=== PATIENT | female | born 1980 | race Caucasian/White ===

== ENCOUNTER 2018-10-06 19:19 | Emergency (ER) | payer MEDICAID ==
[~2018-10-06] VITALS: Ht 175.3 cm; Wt 95.3 kg
[2018-10-06] MEDS ORDERED: CIPROFLOXIN HC2.5 M1 OPHTHALMIC (20:13)
[2018-10-06 20:39] VITALS: BP 118/68
== END 2018-10-06 20:40 | disposition home or self-care (01) ==
LOC: M.ERS 19:19
DX: H10.9 Unspecified conjunctivitis (principal); J44.9 Chronic obstructive pulmonary disease, unspecified; Z90.49 Acquired absence of other specified parts of digestive tract; Z90.710 Acquired absence of both cervix and uterus; Z96.669 Presence of unspecified artificial ankle joint; Z88.2 Allergy status to sulfonamides; Z88.1 Allergy status to other antibiotic agents; Z91.041 Radiographic dye allergy status; Z91.040 Latex allergy status; Z88.8 Allergy status to other drugs, medicaments and biological substances

== ENCOUNTER 2018-11-03 17:33 | Emergency (ER) | payer MEDICAID ==
[~2018-11-03] VITALS: Ht 170.2 cm; Wt 100.7 kg
[~2018-11-03 17:33] MED LIST: CIPROFLOXIN HC2.5 M1 OPHTHALMIC
[2018-11-03 18:12] LABS: INFLUENZA A ANTIGEN None Detected (None Detect); INFLUENZA B ANTIGEN None Detected (None Detect)
[2018-11-03 18:18] VITALS: BP 127/77
== END 2018-11-03 18:19 | disposition home or self-care (01) ==
LOC: M.ERS 17:33
PROVIDERS: Nurse Practitioner Family
DX: B34.9 Viral infection, unspecified (principal); J44.9 Chronic obstructive pulmonary disease, unspecified; Z91.048 Other nonmedicinal substance allergy status; Z88.1 Allergy status to other antibiotic agents; Z88.8 Allergy status to other drugs, medicaments and biological substances; Z91.041 Radiographic dye allergy status; Z91.040 Latex allergy status; Z88.2 Allergy status to sulfonamides; Z90.711 Acquired absence of uterus with remaining cervical stump; Z90.49 Acquired absence of other specified parts of digestive tract